=== PATIENT | male | born 1945 | race Caucasian/White ===

== ENCOUNTER 2019-02-18 20:54 | Emergency (ER) | payer OTHER ==
[2019-02-18] MEDS ORDERED: SOD CHLORIDE 0.9% 1,000 ML IV (22:18)
[2019-02-18] MEDS ORDERED: GLUCAGON 1 MG INJ IV (22:18)
[2019-02-18] MEDS ORDERED: LIDOCAINE 2% VISC 15 ML CUP PO (22:30)
[2019-02-19 02:03] LABS: ADD MAN DIFF? NO
[2019-02-19 02:06] LABS: BASOPHIL # 0.1 10^3/ul (0.0-0.1); BASOPHILS % 0.5 % (0.0-2.0); EOSINOPHILS # 0.2 10^3/ul (0.0-0.5); HEMATOCRIT 44.6 % (42.0-52.0); HEMOGLOBIN 14.8 g/dl (14.0-18.0); LYMPHOCYTES # 2.5 10^3/ul (0.8-2.9); LYMPHOCYTES % 23.5 % (15.0-51.0); MEAN CORPUSCULAR HEMOGLOBIN 29.5 pg (29.0-33.0); MEAN CORPUSCULAR HGB CONC 33.2 g/dl (32.0-37.0); MEAN CORPUSCULAR VOLUME 88.8 fl (82.0-101.0); MEAN PLATELET VOLUME 8.8 fl (7.4-10.4); MONOCYTE # 0.9 10^3/ul (0.3-0.9); MONOCYTES % 8.2 % (0.0-11.0); NEUTROPHILS % 65.1 % (39.0-77.0); PLATELET COUNT 264 10^3/UL (140-415); RED BLOOD COUNT 5.02 10^6/ul (4.70-6.10); RED CELL DISTRIBUTION WIDTH 13.2 % (11.5-14.5)
[2019-02-19 02:06] LABS: WHITE BLOOD COUNT 10.8 10^3/ul (4.8-10.8)
[2019-02-19 02:24] LABS: INR 0.91; PROTIME 12.4 Sec (11.9-14.9)
[2019-02-19 02:25] LABS: PARTIAL THROMBOPLASTIN TIME 44.5 Sec (23.0-35.0)
[2019-02-19 02:27] LABS: ANION GAP 10 (5-13); BLOOD UREA NITROGEN 19 mg/dl (7-20); CALCIUM 9.3 mg/dl (8.4-10.2); CARBON DIOXIDE 26 mmol/L (21-31); CHLORIDE 106 mmol/L (97-110); CREATININE 0.91 mg/dl (0.61-1.24); GLUCOSE 130 mg/dl (70-220); SODIUM 142 mmol/L (135-144)
== END 2019-02-19 06:09 | disposition short-term general hospital (02) ==
LOC: FTE 20:54 → E/R 02-19 06:09
DX: T17.208A Unspecified foreign body in pharynx causing other injury, initial encounter (principal); X58.XXXA Exposure to other specified factors, initial encounter; Y92.9 Unspecified place or not applicable
CPT/HCPCS: 36415; 70490; 80048; 85025; 85610; 85730; 99284-25